=== PATIENT | female | born 1950 | race Caucasian/White ===

== ENCOUNTER 2016-07-06 11:34 | Day surgery (SDC) | payer OTHER ==
[2016-07-05 16:03] VITALS: BMI 21.6
[2016-07-06 11:56] VITALS: TEMP 98
[2016-07-06 12:53] LABS: MCH 26.4 pg (25.7-33.7); MCHC 32.6 g/dl (32.0-36.0); MEAN CELL VOLUME 81.2 fl (80-96); MEAN PLT VOLUME 7.8 fl (7.5-11.1); PLATELET COUNT 244 K/MM3 (134-434); RDW 13.5 % (11.6-15.6); WHITE BLOOD COUNT 3.9 K/mm3 (4.0-10.0)
[2016-07-06 13:54] LABS: INR 1.08 (0.82-1.09); PROTHROMBIN TIME (PATIENT) 11.9 SEC (9.98-11.88)
[2016-07-06 15:37] VITALS: BP 123/76; PULSE 70
== END 2016-07-06 15:30 | disposition home or self-care (01) ==
LOC: JRADIR 11:34
PROVIDERS: ATTEND Surgery
PROC: BW40ZZZ Ultrasonography of Abdomen (ICD-10-PCS; principal; 2016-07-06)
PROC: 0JB83ZX Excision of Abdomen Subcutaneous Tissue and Fascia, Percutaneous Approach, Diagnostic (ICD-10-PCS; 2016-07-06)
DX: R19.07 Generalized intra-abdominal and pelvic swelling, mass and lump (principal); Z53.8 Procedure and treatment not carried out for other reasons
CPT/HCPCS: 36415; 76705; 85027; 85610

== ENCOUNTER 2017-05-22 09:50 | Emergency (ER) | payer OTHER, BC ==
[2017-05-22 09:57] VITALS: BP 149/107; PULSE 78; TEMP 98.1; BMI 21.6
[2017-05-22] MEDS ORDERED: KETOROLAC TROMETHAMINE 30 MG/1 ML VIAL IM ONE (10:22)
[2017-05-22] MEDS ORDERED: diazePAM 5 MG TABLET PO ONE (10:22)
[2017-05-22] MEDS ORDERED: diazePAM 5 MG TABLET ONE (10:24)
[2017-05-22] MEDS ORDERED: KETOROLAC TROMETHAMINE 30 MG/1 ML VIAL ONE (10:24)
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
== END 2017-05-22 11:40 | disposition home or self-care (01) ==
LOC: FER 09:50
PROC: 3E0233Z Introduction of Anti-inflammatory into Muscle, Percutaneous Approach (ICD-10-PCS; principal; 2017-05-22)
DX: Z87.891 Personal history of nicotine dependence (principal); M54.32 Sciatica, left side
CPT/HCPCS: 96372; 99283-25

== ENCOUNTER 2018-05-05 21:22 | Emergency (ER) | payer OTHER, BC ==
--- NOTE | 2018-05-05 21:32 | PDOC ---
History of Present Illness - General History Source: Patient Exam Limitations: No Limitations - History of Present Illness Initial Comments: 05/05/18 21:41 The patient is a 67 year old female with no significant past medical history who presents to the emergency department with ankle pain since 11am. The patient states she was going down the stairs to open the door when she missed a step. The patient states her ankle pain is aggravated with any type of ankle movement. The patient reports she took 2 tablets of ibuprofen 30 minutes prior to her arrival to the ED. The patient denies falling on her head, back or hands. The patient denies icing her ankle after her injury. Allergies: NKDA Past surgical history: None reported Social history: None reported PCP: Dr. Malcolm <Joseph Gudino - Last Filed: 05/05/18 21:41> <Mansoor Ash - Last Filed: 05/05/18 21:56> - General Chief Complaint: Injury Stated Complaint: LT ANKLE PAIN Time Seen by Provider: 05/05/18 21:31 Past History <Joseph Gudino - Last Filed: 05/05/18 21:41> - Past Medical History Anemia: No Asthma: No Cancer: No Cardiac Disorders: No CVA: No COPD: No CHF: No Dementia: No Diabetes: No GI Disorders: No Disorders: No HTN: No Hypercholesterolemia: No Liver Disease: No Seizures: No Thyroid Disease: No - Surgical History Abdominal Surgery: No Appendectomy: No Cardiac Surgery: No Cholecystectomy: No Lung Surgery: No Neurologic Surgery: No Orthopedic Surgery: No - Suicide/Smoking/Psychosocial Hx Smoking History: Former smoker Have you smoked in the past 12 months: No Number of Cigarettes Smoked Daily: 0 If you are a former smoker, when did you quit?: 20YRS AGO Hx Alcohol Use: No Drug/Substance Use Hx: No Substance Use Type: None Hx Substance Use Treatment: No <Mansoor Ash - Last Filed: 05/05/18 21:56> - Past Medical History Allergies/Adverse Reactions: Allergies Allergy/AdvReac Type Severity Reaction Status Date / Time vitamin E (d-alpha Allergy "SWELLING" Verified 05/22/17 09:52 tocopherol) [vitamin E] Penicillins AdvReac Verified 05/22/17 09:52 Home Medications: Ambulatory Orders NK [No Known Home Medication] 05/05/18 Review of Systems - Review of Systems Able to Perform ROS?: Yes Comments:: 05/05/18 21:42 A complete review of 10 out of 10 review of systems is taken and is negative apart from what is previously mentioned below and in the HPI. All Other Systems: Reviewed and Negative <Joseph Gudino - Last Filed: 05/05/18 21:41> *Physical Exam - Vital Signs Last Vital Signs Temp Pulse Resp BP Pulse Ox 98.6 F 79 16 148/88 99 05/05/18 21:24 05/05/18 21:24 05/05/18 21:24 05/05/18 21:24 05/05/18 21:24 - Physical Exam Comments: 05/05/18 21:42 Vitals: Triage Vital signs reviewed General Appearance: no acute distress, well nourished well developed, Extremities: (+)swelling and ecchymosis to lateral malleolus. (+) tenderness to palpation medial to the lateral malleolus. No tenderness to palpation to 5th metatarsal. No tenderness to palpation to soto or knee. Neurovascular intact. Skin: Warm and dry, no rashes or lesions, no petechiae Neuro: AOX3; Cranial Nerves 2-12 grossly c intact, Strength intact to all extremities, Sensation intact to all extremities, gait normal <Joseph Gudino - Last Filed: 05/05/18 21:41> ED Treatment Course - RADIOLOGY Radiology Studies Ordered: Category Date Time Status ANKLE-LEFT [RAD] Stat Radiology 05/05/18 21:31 Ordered <Mansoor Ash - Last Filed: 05/05/18 21:56> Medical Decision Making - Medical Decision Making 05/05/18 21:43 The patient is a 67 year old female with no significant past medical history who presents to the emergency department with ankle pain since 11am. <Joseph Gudino - Last Filed: 05/05/18 21:41> - Medical Decision Making 05/05/18 21:53 No acute fracture dislocation noted on x-ray. History and examination consistent with ankle sprain. Patient has crutches at home. Will place an Aircast recommend rest ice NSAIDs elevation and orthopedic follow-up next week Findings, the need for follow-up and strict return instructions discussed with patient. <Mansoor Ash - Last Filed: 05/05/18 21:56> *DC/Admit/Observation/Transfer - Attestations Scribe Attestion: 05/05/18 21:43 Documentation prepared by Joseph Gudino, acting as medical records administrator for Mansoor Ash MD, MD <Joseph Gudino - Last Filed: 05/05/18 21:41> <Mansoor Ash - Last Filed: 05/05/18 21:56> Diagnosis at time of Disposition: Ankle sprain Qualifiers: Encounter type: initial encounter Involved ligament of ankle: unspecified ligament Laterality: right Qualified Code(s): S93.401A - Sprain of unspecified ligament of right ankle, initial encounter - Discharge Dispostion Disposition: HOME Condition at time of disposition: Stable - Referrals Referrals: Clay Malcolm MD [Primary Care Provider] - Chriss Arboleda MD [Staff Physician] - - Patient Instructions Printed Discharge Instructions: Ankle Sprain Additional Instructions: Crutches while ambulating. Rest, keep off ankle as much as possible. Elevate. Ice 20 minutes on 20 minutes off. [id number] Motrin as directed on package. Do not return to sports or normal walking until pain-free follow-up with Dr. Arboleda orthopedics next week. Return to ED for any severe worsening symptoms or for any concerns. - Post Discharge Activity
[2018-05-05 21:44] VITALS: BP 148/88; PULSE 79; TEMP 98.6; BMI 21.6
== END 2018-05-05 22:05 | disposition home or self-care (01) ==
LOC: FER 21:22
DX: S93.401A Sprain of unspecified ligament of right ankle, initial encounter (principal); W10.9XXA Fall (on) (from) unspecified stairs and steps, initial encounter; Y93.89 Activity, other specified; Y92.89 Other specified places as the place of occurrence of the external cause; Z87.891 Personal history of nicotine dependence
CPT/HCPCS: 73610-TC-LT-FY; 99282-25

== ENCOUNTER 2020-12-12 11:17 | Emergency (ER) | payer OTHER ==
[2020-12-12 11:25] VITALS: TEMP 97.4; BMI 19.1
[2020-12-12 12:23] VITALS: BP 153/99; PULSE 62
== END 2020-12-12 12:59 | disposition home or self-care (01) ==
LOC: FER 11:17
DX: R07.81 Pleurodynia (principal)
CPT/HCPCS: 71046-TC-FY; 71101-TC-LT-FY; 99284-25

== ENCOUNTER 2021-07-14 04:16 | Day surgery (SDC) | payer OTHER ==
[2021-07-14] MEDS ORDERED: LIDOCAINE 1%/EPI 1:100000 (20 ML MULTI DOSE VIAL) ONE (10:21)
[2021-07-14] MEDS ORDERED: LIDOCAINE HCL/PF 2% SDV 5ML VIAL ONE (11:25)
[2021-07-14] MEDS ORDERED: MIDAZOLAM HCL 2 MG/2 ML SINGLE DOSE VIAL ONE (11:25)
[2021-07-14] MEDS ORDERED: PROPOFOL 20 ML ONE (11:25)
[2021-07-14] MEDS ORDERED: DEXAMETHASONE SOD PHOSPHATE 4 MG/1 ML VIAL ONE (11:25)
[2021-07-14] MEDS ORDERED: ceFAZolin SODIUM 1 GM VIAL IVPB ONE (11:48)
[2021-07-14] MEDS ORDERED: ceFAZolin SODIUM 1 GM VIAL ONE (11:52)
[2021-07-14] MEDS ORDERED: BUPIVACAINE HCL/PF 0.5% (5 MG/ML) 30 ML VIAL IJ ONE (12:04)
[2021-07-14] MEDS ORDERED: LIDOCAINE 1%/EPI 1:100000 (50 ML MULTI DOSE VIAL) INF ONE (12:04)
[2021-07-14] MEDS ORDERED: oxyCODONE HCL 5 MG TABLET PO PRN ×2 (13:40)
[2021-07-14] MEDS ORDERED: ONDANSETRON 4 MG/2 ML VIAL IVPUSH PRN ×2 (13:40→14:47)
[2021-07-14] MEDS ORDERED: LACTATED RINGERS SOLUTION 1,000 ML IV SCH ×2 (13:45→15:00)
[2021-07-14 14:04] VITALS: BP 138/84; PULSE 70; TEMP 97.8
== END 2021-07-14 14:20 | disposition home or self-care (01) ==
LOC: JASU-SURG 04:16
PROVIDERS: ATTEND Orthopaedic Surgery
PROC: 0SBC4ZZ Excision of Right Knee Joint, Percutaneous Endoscopic Approach (ICD-10-PCS; principal; 2021-07-14 10:15)
DX: M23.91 Unspecified internal derangement of right knee (principal); S83.241A Other tear of medial meniscus, current injury, right knee, initial encounter; X58.XXXA Exposure to other specified factors, initial encounter; Y92.9 Unspecified place or not applicable; Y93.9 Activity, unspecified
CPT/HCPCS: 94760